=== PATIENT | female | born 1950 | race African-American/Black ===

== ENCOUNTER 2016-05-27 21:32 | Emergency (ER) | payer MEDICARE ==
--- NOTE | ~2016-05-27 | CT4 ---
[facility] A Service [facility] RADIOLOGY TEXT RESULTS PATIENT: LESLEY CONTRERAS LOCATION: SED : 50 UNIT #: [id number] AGE: [address]: Phoenix Rodriguez DO SEX: F ORDER DR: [id number] [address] [address] [id number] MR#: [id number] Acc #: [id number] NAME: LESLEY CONTRERAS : 1950 SEX: F STUDY DATE/TIME: 05/27/2016 21:34 UNIT: SED ROOM: STUDY DESCRIPTION: CT Abd and Pelv Wo Cont Attending Physician: Phoenix Rodriguez D.O. Ordering Physician: Phoenix Rodriguez D.O. MEDICAL IMAGING REPORT This report is preliminary unless electronic signature is present. EXAM CT abdomen and pelvis. INDICATIONS Left lower quadrant abdominal pain for 1 day. Painful urination. Hematuria. TECHNIQUE CT abdomen and pelvis without contrast. Coronal and sagittal reconstructions were obtained. This CT exam was performed with one or more of the following radiation dose reduction techniques: automatic exposure control, adjustment of mA and/or kV according to patient size, and iterative reconstruction. COMPARISON None available. FINDINGS ABDOMEN: Noncontrast evaluation of the liver, pancreas, spleen, and adrenal glands are within normal limits. There is a peripherally calcified gallstone in the gallbladder neck measuring 1.7 cm. There is no gallbladder distension. The kidneys are symmetric in size. No hydronephrosis or ureteral calculi. The bowel is not dilated. No enlarged retroperitoneal or mesenteric lymph nodes. Appendix is normal. The abdominal aorta is normal in caliber. PELVIS: The uterus and ovaries are within normal limits. Bladder is unremarkable. There is an indirect right inguinal hernia. [facility] A Service of [facility] RADIOLOGY TEXT RESULTS PATIENT: LESLEY CONTRERAS LOCATION: SED : 50 UNIT #: [id number] AGE: [address]: Phoenix Rodriguez DO SEX: F ORDER DR: There are a few colonic diverticula. Uterus and ovaries are within normal. Patient has had prior tubal ligation. Bladder is unremarkable. No acute osseous abnormalities. IMPRESSION 1. No acute findings in the abdomen or pelvis. No urinary calculi. 2. Cholelithiasis. Dictated by... Nick Yao M.D. THIS IS AN ELECTRONICALLY VERIFIED REPORT Nick Yao M.D. at 05/28/2016 3:26 PM JUAN CARLOS/bridgett TD: 05/28/2016 00:38 JOB #: [id number] MEDICAL IMAGING REPORT Page 1 of 1
[2016-05-27 21:19] LABS: URINE SOURCE CLEAN CATCH
[2016-05-27 21:24] LABS: MICRO INDICATED? YES; URINE APPEARANCE CLEAR; URINE BILIRUBIN NEG (NEG); URINE BLOOD 1+ (NEG); URINE COLOR YELLOW; URINE GLUCOSE NEG (NORM); URINE KETONE NEG (NEG); URINE LEUKOCYTE ESTERASE NEG (NEG); URINE NITRATE NEG (NEG); URINE PROTEIN NEG (NEG); URINE SPECIFIC GRAVITY 1.015 (1.003-1.035); URINE UROBILINOGEN 0.2 MG/DL (NORM)
[2016-05-27 21:29] LABS: CULTURE INDICATED? NO; URINE BACTERIA NEG (NEG); URINE SQUAMOUS EPITHELIAL CELL OCCAS /[HPF]; URINE WBC 0-2 /[HPF] (0-5)
[~2016-05-27 21:32] MED LIST: BAYER CHEWABLE81 MG; SYNTHROID; [UNRECOGNIZED DRUG - OTHER]; [UNRECOGNIZED DRUG - REMARK]
[2016-05-27 21:47] LABS: BASOPHIL% 0.7 % (0-2.5); EOSINOPHIL# 0.1 X10e3 (0-0.7); EOSINOPHIL% 1.3 % (0.0-7.0); HEMOGLOBIN 11.1 gm/dL (12.0-16.0); LYMPHOCYTE# 1.4 X10e3 (1.0-3.5); MEAN CELL VOLUME 84.5 FL (83-96); MEAN CORPUSCULAR HEMOGLOBIN 27.4 PG (28-34); MEAN CORPUSCULAR HGB CONC 32.5 g/dL (30-36); MEAN PLATELET VOLUME 10.5 FL (6.5-11.5); MONOCYTE# 0.5 X10e3 (0-1.0); MONOCYTE% 7.8 % (3.0-12.0); NEUTROPHIL# 4.4 X10e3 (1.5-7.1); NEUTROPHIL% 68.2 % (40-75); PLATELET COUNT 141 X10e3 (140-420); RED BLOOD COUNT 4.03 X10e (3.90-5.30); RED CELL DISTRIBUTION WIDTH 13.7 % (11.0-15.5); WHITE BLOOD COUNT 6.4 X10e3 (4.0-10.5)
[2016-05-27 21:49] LABS: DIFF IND NO
[2016-05-27 22:07] LABS: ALBUMIN SERUM 4.2 g/dL (3.5-5.0); BILIRUBIN,TOTAL 0.4 mg/dL (0.2-2.0); BUN/CREATININE RATIO 21.11; CALCIUM SERUM 9.1 mg/dL (8.4-10.2); CREATININE SERUM 0.9 mg/dL (0.6-1.4); GLOM FILT RATE Estimated 77.3 mL/min (>60); POTASSIUM 3.7 mmol/L (3.5-5.1); PROTEIN TOTAL SERUM 7.1 g/dL (6.0-8.3)
[2016-05-27 23:07] LABS: POC - CKMB 2.4 ng/mL (0.0-7.9); POC - MYOGLOBIN 89.1 ng/mL (0.0-169.0); POC - TROPONIN <0.05 ng/mL (<=0.05)
== END 2016-05-28 | disposition home or self-care (01) ==
LOC: SED 21:32
PROVIDERS: Emergency Medicine
DX: R10.32 Left lower quadrant pain (principal); R03.0 Elevated blood-pressure reading, without diagnosis of hypertension; E03.9 Hypothyroidism, unspecified; Z87.440 Personal history of urinary (tract) infections; Z98.51 Tubal ligation status
CPT/HCPCS: 36415; 74176; 80053; 81003; 82553; 83690; 83874; 84484; 85025; 96374; 99284; J1885